=== PATIENT | female | born 1965 | race Caucasian/White ===

== ENCOUNTER 2016-07-28 12:44 | Emergency (ER) | payer OTHER ==
[~2016-07-28] VITALS: Ht 162.6 cm; Wt 98.0 kg
[2016-07-28] MEDS ORDERED: BACTRIM DS1 TAB PO (13:26)
[2016-07-28 13:28] VITALS: BP 117/89
== END 2016-07-28 13:50 | disposition home or self-care (01) | DRG 605 ==
LOC: ED 12:44
DX: S61.231A Puncture wound without foreign body of left index finger without damage to nail, initial encounter (principal); W46.1XXA Contact with contaminated hypodermic needle, initial encounter; Y93.F9 Activity, other caregiving; Y92.148 Other place in prison as the place of occurrence of the external cause